=== PATIENT | male | born 1940 | race Caucasian/White ===

== ENCOUNTER → 2021-10-07 | Outpatient (CLI) | payer MEDICARE | LOC: HEART 5 08:33 | DX: R06.02 Shortness of breath (principal) | CPT/HCPCS: 78452; 93306; A9502; J2785 ==

== ENCOUNTER → 2022-01-03 | Outpatient (CLI) | payer MEDICARE | LOC: HEART 5 12-30 13:30 | DX: I48.91 Unspecified atrial fibrillation (principal) ==

== ENCOUNTER → 2022-01-18 | Outpatient (CLI) | payer MEDICARE | LOC: EXRD 14:30 | DX: R07.81 Pleurodynia (principal); J98.11 Atelectasis; J90 Pleural effusion, not elsewhere classified | CPT/HCPCS: 71046 ==